=== PATIENT | male | born 1990 | race Caucasian/White ===

== ENCOUNTER 2016-12-21 19:48 | Emergency (ER) | payer OTHER ==
[2016-12-21] MEDS ORDERED: TETANUS/DIPHTHERIA/PERTUSSIS 0.5 ML SYRINGE IM ONE ×2 (19:58→20:05)
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
[2016-12-21] MEDS ORDERED: LIDOCAINE 1% 2 ML VIAL ONE (21:08)
[2016-12-21] MEDS ORDERED: BACITRACIN OINT TOP STA (21:41)
[2016-12-21] MEDS ORDERED: BACITRACIN OINT TOP ONE (21:45)
[2016-12-21 21:58] VITALS: BP 135/73
== END 2016-12-21 21:58 | disposition home or self-care (01) ==
LOC: ED 19:48
DX: S51.812A Laceration without foreign body of left forearm, initial encounter (principal); X78.1XXA Intentional self-harm by knife, initial encounter; Y92.019 Unspecified place in single-family (private) house as the place of occurrence of the external cause
CPT/HCPCS: 12001; 90471; 90715; 99283; A9270

== ENCOUNTER 2023-05-30 21:08 | Emergency (ER) | payer OTHER ==
[2023-05-30 21:47] LABS: MUDS CUTOFF CONCENTRATIONS CUTOFF CONC BELOW:
[2023-05-30 22:10] LABS: AMPHETAMINE SCREEN,URINE NEGATIVE (NEGATIVE); BARBITURATE SCREEN,UR NEGATIVE (NEGATIVE); BENZODIAZEPINES SCREEN, URINE NEGATIVE (NEGATIVE); COCAINE SCREEN URINE NEGATIVE (NEGATIVE); METHADONE SCREEN, URINE NEGATIVE (NEGATIVE); METHAMPHETAMINES SCREEN, URINE NEGATIVE (NEGATIVE); OPIATE SCREEN, URINE NEGATIVE (NEGATIVE); OXYCODONE SCREEN, URINE NEGATIVE (NEGATIVE); PROPOXYPHENE SCREEN, URINE NEGATIVE (NEGATIVE); THC CANNABINOID SCREEN, URINE NEGATIVE (NEGATIVE); TRICYCLIC ANTIDEPRESSANT,URINE NEGATIVE (NEGATIVE)
[2023-05-30 22:12] LABS: BASOPHILS # (AUTO) 0.1 10^3/uL (0.0-0.1); BASOPHILS % (AUTO) 0.7 %; EOSINOPHILS % (AUTO) 0.6 %; HCT - HEMATOCRIT 47.9 % (42.0-52.0); HGB - HEMOGLOBIN 16.2 g/dL (14.0-18.0); LYMPHOCYTES # (AUTO) 1.8 10^3/uL (1.5-3.5); MEAN CORPUSCULAR HEMOGLOBIN 30.9 pg (27.0-31.0); MEAN CORPUSCULAR HGB CONC 33.8 g/dL (32.0-36.0); MEAN CORPUSCULAR VOLUME 91.4 fL (80.0-94.0); MEAN PLATELET VOLUME 9.7 fL (7.4-11.4); MONOCYTES # (AUTO) 0.4 10^3/uL (0.0-1.0); MONOCYTES % (AUTO) 5.8 %; NEUTROPHILS # (AUTO) 4.6 10^3/uL (1.5-6.6); NEUTROPHILS % (AUTO) 66.6 %; PLT - PLATELET COUNT 250 10^3/uL (130-450); RED BLOOD COUNT 5.24 10^6/uL (4.70-6.10); RED CELL DISTRIBUTION WIDTH 12.9 % (12.0-15.0); WHITE BLOOD COUNT 6.8 x10^3/uL (4.8-10.8)
[2023-05-30 22:25] LABS: ALBUMIN 4.8 g/dL (3.2-5.5); ALBUMIN/GLOBULIN RATIO 1.5 (1.0-2.2); BILIRUBIN,TOTAL 0.5 mg/dL (0.2-1.0); CALCIUM 9.2 mg/dL (8.5-10.3); CREATININE 1.2 mg/dL (0.6-1.3); POTASSIUM 3.7 mmol/L (3.5-4.5); TOTAL PROTEIN 7.9 g/dL (6.4-8.9)
[2023-05-30 22:33] VITALS: BP 127/84
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
[2023-05-30 22:52] LABS: THYROID STIMULATING HORMONE 2.51 uIU/mL (0.34-5.60)
[2023-05-31 07:20] VITALS: O2SAT 98
--- NOTE | 2023-05-31 08:02 | ED Physician Documentation ---
ED Addendum - Addendum Addendum: 05/31/23 08:01 The patient has been resting comfortably. No behavioral issues reported overnight or this morning. His blood alcohol has drifted down appropriately and the most recent one is at 61 level. Other labs had been normal earlier. The patient is medically cleared for psychological evaluation at this point.
[2023-05-31 08:41] LABS: ACETAMINOPHEN < 0.1 ug/mL; SALICYLATE < 1.5 mg/dL
== END 2023-05-31 11:14 ==
LOC: ED 21:08
DX: R45.851 Suicidal ideations (principal); F32.A Depression, unspecified; F10.129 Alcohol abuse with intoxication, unspecified; Y90.4 Blood alcohol level of 80-99 mg/100 ml; Z20.822 Contact with and (suspected) exposure to COVID-19
CPT/HCPCS: 36415; 80053; 80306; 80307; 80320; 80329; 83690; 84443; 85025; 87635; 99283; 99285

== ENCOUNTER 2024-03-11 16:27 | Emergency (ER) | payer OTHER ==
[2024-03-11 16:50] VITALS: O2SAT 99
--- NOTE | 2024-03-11 16:51 | ED Physician Documentation ---
History of Present Illness - Stated complaint Stated Complaint: CHILLS/SORE THROAT - Chief complaint Chief Complaint: Resp - Additonal information Additional information: 34-year-old male presents emergency department for sore throat fevers and chills. Patient says the symptoms started last night [facility] for influenza he has not had the results yet he continues to complain of a very sore throat difficulty swallowing and is wondering if there is any medications that we can given for this. He said that he is taking Tylenol and that has been little to no relief with this. PD PAST MEDICAL HISTORY - Past Medical History Cardiovascular: None Respiratory: None Endocrine/Autoimmune: None GI: None : None HEENT: None Psych: None Musculoskeletal: None Derm: None - Past Surgical History Past Surgical History: No - Present Medications Home Medications: Ambulatory Orders Medication Instructions Recorded Confirmed No Known Home Medications 05/30/23 05/30/23 - Allergies Allergies/Adverse Reactions: Allergies Allergy/AdvReac Type Severity Reaction Status Date / Time No Known Drug Allergies Allergy Verified 03/11/24 16:30 - Social History Does the pt smoke?: No Smoking Status: Never smoker Does the pt drink ETOH?: Yes Does the pt have substance abuse?: No - Immunizations Immunizations are current?: Yes PD ED PE NORMAL - Vitals Vital signs reviewed: Yes - General General: Alert and oriented X 3, No acute distress, Well developed/nourished - HEENT HEENT: Moist mucous membranes, Other (Erythema to pharynx, ) - Neck Neck: Other (Cervical adenopathy) - Cardiac Cardiac: RRR - Respiratory Respiratory: No respiratory distress, Clear bilaterally - Abdomen Abdomen: Non tender, No organomegaly - Derm Derm: Normal color, Warm and dry, No rash Results - Vitals Vitals: Oxygen O2 Source Room air - Labs Labs: Laboratory Tests 03/11/24 17:38 Group A Strep Rapid POSITIVE H PD Medical Decision Making - ED course ED course: 34-year-old male presents emergency department for sore throat fevers and chills. Rapid group A strep was completed he did test positive. He was offered oral antibiotics or penicillin injection and he opted for the penicillin injection. He was also given liquid ibuprofen to gargle with and did notice significant improvement of symptoms and sore throat as well as 10 mg of oral dexamethasone also reported this helped as well. Patient airway intact he is able to speak without any difficulty able to breathe without any difficulty no further workup or intervention needed. Departure - Departure Disposition: 01 Home, Self Care Clinical Impression: Group beta Strep positive Instructions: Strep Throat Comments: Thank you for trusting us with your care. We have given you 10 mg of dexamethasone a steroid outpatient throat swelling as well as 400 mg liquid ibuprofen to help with your pain and discomfort we also gave you 1000 mg of Tylenol and you are feeling significant proved of symptoms. He did test positive for group A strep we have given you a penicillin shot here in the emergency department and you should start to feel improvement in symptoms over next couple days. As we discussed for throat pain you can gargle with salt water eat honey alternate between Tylenol ibuprofen and lemon and tea. Wishing you a speedy recovery. Forms: PCP List Discharge Date/Time: 03/11/24 18:57
[2024-03-11] MEDS: CHERRY SYRUP 10 ML UDC PO ONE (17:47)
[2024-03-11] MEDS: DEXAMETHASONE 10 MG/ML VIAL PO STA (17:47)
[2024-03-11] MEDS: IBUPROFEN 200 MG/10 ML UDC PO STA (17:47)
[2024-03-11 17:54] LABS: RAPID STREP SCREEN POSITIVE (Negative)
[2024-03-11] MEDS: PENICILLIN G BENZATHINE 1,200,000 UNIT/2 ML SYRINGE IM STA (18:25)
[2024-03-11 19:13] VITALS: BP 138/68
== END 2024-03-11 18:57 | disposition home or self-care (01) ==
LOC: ED 16:27
DX: J02.0 Streptococcal pharyngitis (principal); B95.1 Streptococcus, group B, as the cause of diseases classified elsewhere
CPT/HCPCS: 87430; 96372; 99283; A9270